=== PATIENT | female | born 1985 | race Two or more races ===

== ENCOUNTER 2021-10-26 10:38 | Emergency (ER) | payer MEDICAID, OTHER ==
[~2021-10-26] VITALS: Ht 180.3 cm; Wt 63.5 kg
[2021-10-26] MEDS ORDERED: MORPHINE SULFATE 4 MG/ML SYR/VIAL IV ONE (11:45)
[2021-10-26] MEDS ORDERED: ONDANSETRON HCL 4 MG/2 ML VIAL IV ONE (11:45)
[2021-10-26 14:00] VITALS: BP 104/58
[2021-10-26] MEDS ORDERED: HYDR-4902 PO (15:03)
== END 2021-10-26 15:40 | disposition home or self-care (01) ==
LOC: ER 10:38
DX: S90.01XA Contusion of right ankle, initial encounter (principal); S80.12XA Contusion of left lower leg, initial encounter; W18.39XA Other fall on same level, initial encounter; Y93.89 Activity, other specified; Y92.89 Other specified places as the place of occurrence of the external cause; Y99.8 Other external cause status
CPT/HCPCS: 29505; 73590; 73600; 73620; 93970; 96374; 96375; 99284; J2270; J2405